=== PATIENT | male | born 1945 | race Caucasian/White ===

== ENCOUNTER 2016-07-29 11:26 | Emergency (ER) | payer OTHER ==
--- NOTE | 2016-07-29 12:14 | CPEKG ---
Heart Rate: 70 RR Interval: 857 P-R Interval: 196 QRSD Interval: 100 QT Interval: 408 QTC Interval: 441 P Ol[place]: 65 QRS [place]: 13 T Wave [place]: 51 EKG Severity - NORMAL ECG - EKG Impression: SINUS RHYTHM Electronically Signed By: Jimenez Ennis 30-Jul-2016 12:45:30
[2016-07-29] MEDS ORDERED: ASPIRIN 81 MG CHEWABLE TAB PO ONE (12:44)
[2016-07-29 12:51] LABS: ADD DIFF? NO; ADD MORPH? NO; ADD SCAN? NO; ATYPICAL LYMPHOCYTE FLAG 0 (0-99); FRAGMENT RBC FLAG 0 (0-99); HEMATOCRIT 40.2 % (40.0-51.0); HEMOGLOBIN 14.5 g/dL (13.7-17.5); LEFT SHIFT FLG 0 (0-99); LIPEMIA HEMOLYSIS FLAG 90 (0-99); MEAN CELL HEMOGLOBIN 32.7 pg (27.9-34.1); MEAN CELL HEMOGLOBIN CONCENTR. 36.1 g/dL (32.4-36.7); MEAN CELL VOLUME 90.5 fL (81.5-99.8); MEAN PLATELET VOLUME 9.9 fL (8.7-11.7); PLATELET CLUMPS FLAG 0 (0-99); PLATELET COUNT 184 10^3/uL (150-400); RED BLOOD CELL COUNT 4.44 10^6/uL (4.40-6.38); RED CELL DISTRIBUTION WIDTH 12.2 % (11.5-15.2)
[2016-07-29 12:56] LABS: ANION GAP 11 mEq/L (8-16); CALCIUM 8.9 mg/dL (8.5-10.4); CARBON DIOXIDE 26 mEq/l (22-31); CHLORIDE 105 mEq/L (97-110); CREATININE 0.8 mg/dL (0.7-1.3); GLOMERULAR FILTRATION RATE > 60; GLUCOSE 88 mg/dL (70-100); SODIUM 142 mEq/L (134-144)
[2016-07-29 13:10] LABS: TROPONIN I < 0.012 ng/mL (0-0.034)
--- NOTE | 2016-07-29 14:29 | UCPHY ---
H & P Patient Type: New Chief Complaint Nursing Narrative: awoke last tue am with Lt under arm shante down entire side - inc. pain with certain movements - denies trauma/ SOB or chest pain- describes as a dull ache feeling Time Seen by Provider: 07/29/16 12:46 HPI/ROS: CHIEF COMPLAINT: Chest History by patient HISTORY OF PRESENT ILLNESS: 71-year-old man presents complaining of left-sided chest pain which he describes as dull, constant localized to his left anterior and lateral chest which is worse with movement and change of position. He feels like it is in his chest wall. It is not associated with any shortness of breath, nausea, vomiting or diaphoresis. The pain has been constant and is not exacerbated by exertion or exercise but by change of position. He has not taken anything for the pain at home because he says is just a mild pain and he does not feel like he needs any medication for it. There is no associated leg pain or swelling. Patient states that 30 years ago he had some chest pain and had seen a core checker and had an angiogram x2 but did not ever have any stents and never followed up with a core checker. He does have a history of hypertension and high cholesterol. His father of heart failure in his 80s. REVIEW OF SYSTEMS: As in HPI, and all other systems reviewed and are negative - Personal History Current Tetanus Diphtheria and Acellular Pertussis (TDAP): Yes - Medical/Surgical History Other PMH: had Cardiac cath 30 yrs ago X 2 with neg results- in [place] - Family History Significant Family History: No pertinent family hx - Social History Smoking Status: Never smoked - Physical Exam Exam: General Appearance: Alert, pleasant, well-appearing. Eyes: Pupils equal and round no pallor or injection. ENT, Mouth: Mucous membranes moist. Respiratory: Normal, effort, There are no retractions, lungs are clear to auscultation. Cardiovascular: Regular rate and rhythm. S1-S2 no murmurs gallops rubs appreciated Chest: No bony tenderness, step-off or crepitus Gastrointestinal: Abdomen is soft and nontender, no masses, bowel sounds normal. Neurological: Awake, alert and oriented x 3, no pronator drift, normal gait, no pronator drift Skin: Warm and dry, no rashes. Musculoskeletal: Neck is supple nontender. Extremities are symmetrical, full range of motion. No edema or tenderness Psychiatric: Patient has normal affect, there is no agitation. Constitutional: Initial Vital Signs Temperature (C) 36.6 C 07/29/16 11:30 Heart Rate 75 07/29/16 11:30 Respiratory Rate 18 07/29/16 11:30 Blood Pressure 145/62 H 07/29/16 11:30 O2 Sat (%) 97 07/29/16 11:30 O2 Delivery Mode Room Air Allergies/Adverse Reactions: No Known Allergies Allergy (Unverified 07/29/16 11:29) Home Medications: Medication Instructions Recorded Lisinopril 07/29/16 SIMVASTATIN 07/29/16 Medical Decision Making - Diagnostics EKG Interpretation: Normal sinus rhythm at a rate of 70 with normal axis, normal intervals and no ST segment abnormalities. Impression: Normal EKG Imaging: Imaging Impressions Chest X-Ray 07/29/16 12:44 Impression: No evidence of acute cardiopulmonary abnormality. ED Course/Re-evaluation: This is a 71-year-old man who presents with left-sided chest pain that is worse with movement and change in position. His symptoms are atypical for cardiac chest pain. His EKG is normal. He describes 5 days of constant symptoms and get a troponin is negative and I feel this is unlikely to represent acute coronary syndrome and there is no evidence for myocardial infarction. Chest x- ray is unremarkable. No evidence of shingles. Because of patient's symptoms are unclear and he will need to follow up with his primary care physician for further evaluation. I did discuss this patient who understands and is agreeable to this plan. - Data Points Laboratory Results: Laboratory Results 07/29/16 12:30 07/29/16 12:30 07/29/16 07/29/16 12:30 12:30 WBC 4.78 10^3/uL 10^3/uL (3.80-9.50) RBC 4.44 10^6/uL 10^6/uL (4.40-6.38) Hgb 14.5 g/dL g/dL (13.7-17.5) Hct 40.2 % % (40.0-51.0) MCV 90.5 fL fL (81.5-99.8) MCH 32.7 pg pg (27.9-34.1) MCHC 36.1 g/dL g/dL (32.4-36.7) RDW 12.2 % % (11.5-15.2) Plt Count 184 10^3/uL 10^3/uL (150-400) MPV 9.9 fL fL (8.7-11.7) Neut % (Auto) 57.7 % % (39.3-74.2) Lymph % (Auto) 30.8 % % (15.0-45.0) [place] % (Auto) 10.7 % % (4.5-13.0) Eos % (Auto) 0.4 % L % (0.6-7.6) Baso % (Auto) 0.4 % % (0.3-1.7) Nucleat RBC Rel Count 0.0 % % (0.0-0.2) Absolute Neuts (auto) 2.76 10^3/uL 10^3/uL (1.70-6.50) Absolute Lymphs (auto) 1.47 10^3/uL 10^3/uL (1.00-3.00) Absolute Monos (auto) 0.51 10^3/uL 10^3/uL (0.30-0.80) Absolute Eos (auto) 0.02 10^3/uL L 10^3/uL (0.03-0.40) Absolute Basos (auto) 0.02 10^3/uL 10^3/uL (0.02-0.10) Absolute Nucleated RBC 0.00 10^3/uL 10^3/uL (0-0.01) Immature Gran % 0.0 % % (0.0-1.1) Immature Gran # 0.00 10^3/uL 10^3/uL (0.00-0.10) Sodium 142 mEq/L mEq/L (134-144) Potassium 4.0 mEq/L mEq/L (3.5-5.2) Chloride 105 mEq/L mEq/L (97-110) Carbon Dioxide 26 mEq/l mEq/l (22-31) Anion Gap 11 mEq/L mEq/L (8-16) BUN 12 mg/dL mg/dL (7-23) Creatinine 0.8 mg/dL mg/dL (0.7-1.3) Estimated GFR > 60 Glucose 88 mg/dL mg/dL (70-100) Calcium 8.9 mg/dL mg/dL (8.5-10.4) Troponin I < 0.012 ng/mL ng/mL (0-0.034) Medications Given: Discontinued Medications Aspirin (Aspirin) 324 mg PO EDNOW ONE Stop: 07/29/16 12:45 Last Admin: 07/29/16 13:02 Dose: 324 mg Departure - Departure Disposition: Home, Routine, Self-Care Clinical Impression: Acute chest wall pain Condition: Good Instructions: Chest Wall Pain (ED) Additional Instructions: You were seen by Dr. Teodora Monahan today. Return for any worsening or new concerns. Please follow up with their regular doctor within the next week to discuss the need for any further evaluation or cardiac testing. Referrals: Arielle Dove MD [Primary Care Provider] - As per Instructions - PQRS PQRS Measurement: NA
[2016-07-29 14:33] VITALS: BP 128/70; PULSE 72; RESP 16; TEMP 98.2; O2SAT 95
== END 2016-07-29 14:38 | disposition home or self-care (01) ==
LOC: CED 11:26
DX: R07.89 Other chest pain (principal); I10 Essential (primary) hypertension; E78.5 Hyperlipidemia, unspecified; Z82.49 Family history of ischemic heart disease and other diseases of the circulatory system
CPT/HCPCS: 71020; 93005; G0463; 80048-PO; 84484-PO; 85025-PO; 93010-PO; 99205-PO

== ENCOUNTER → 2016-11-18 | Outpatient (CLI) | payer OTHER | LOC: CIMAGING 10:39 | PROVIDERS: ATTEND Internal Medicine | DX: M54.10 Radiculopathy, site unspecified (principal); M54.9 Dorsalgia, unspecified; M51.36 Other intervertebral disc degeneration, lumbar region | CPT/HCPCS: 72100-PO ==

== ENCOUNTER → 2016-12-02 | Outpatient (CLI) | payer OTHER | LOC: FIMAGING 13:32 | PROVIDERS: ATTEND Internal Medicine | DX: M51.36 Other intervertebral disc degeneration, lumbar region (principal); M47.896 Other spondylosis, lumbar region; M48.06 Spinal stenosis, lumbar region; M46.96 Unspecified inflammatory spondylopathy, lumbar region ==

== ENCOUNTER 2017-01-21 13:06 | Emergency (ER) | payer OTHER ==
[2017-01-21 13:26] VITALS: TEMP 98.6
--- NOTE | 2017-01-21 13:41 | EDPHY ---
H & P Stated Complaint: left calf pain and swelling since friday, denies injury Time Seen by Provider: 01/21/17 13:21 HPI/ROS: CHIEF COMPLAINT: Right leg swelling HISTORY OF PRESENT ILLNESS: This is a 71-year-old male with 3 days of right lower leg swelling. No trauma. He has no history of venous thromboembolism. He does not have chest pain or shortness of breath. He has been wondering if this swelling could be related to back and leg pain that he has been experiencing over the last few months. He has a history of lumbar disc disease and is status post L4-5 diskectomy in 2003. For the past couple of months he has had some pain and numbness, primarily involving his low back and right leg. He saw Dr. Bardales on January 16 and, at that visit, it was decided to hold off on surgery. However, 3 nights ago he developed left leg pain. He has had persistent mild cramping in his left leg and states that his pain is now very mild. However, 3 days ago his noticed that his left leg was swollen. The swelling has persisted. He took Advil and muscle relaxant over the weekend. REVIEW OF SYSTEMS: A ten point review of systems was performed and is negative with the exception of the items mentioned in the HPI. Past medical history: 1. Hypertension 2. Hyperlipidemia 3. Benign prostatic hypertrophy Past surgical history: 1. L4-5 diskectomy 2. Inguinal hernia repair Family history: No venous thromboembolism Social history: He lives with his . He is retired electrical system specialist. He does not use tobacco products. He drinks alcohol socially. He is originally from [place]. General Appearance: Alert. Vital signs reviewed. Blood pressure 157/87 Eyes: Pupils equal and round, no conjunctival injection, no discharge. Anicteric. Respiratory: Lungs are clear to auscultation; no wheezes, rales, or rhonchi. Cardiovascular: Regular rate and rhythm; no murmur, rub, or gallop. Gastrointestinal: Abdomen is soft and nontender, no masses or organomegaly, bowel sounds normal. Skin: Warm and dry, no rashes on exposed skin, normal color. Extremities: Swelling of the left calf with some tenderness to palpation. Pulses: 2+ dorsalis pedis pulses bilaterally. Neurological: Alert and oriented. Moving all four extremities easily and equally. Strength is 5/5 in both lower extremities with testing of all major motor groups. Sensation is intact to light touch in both lower extremities. Gait is normal. Psychiatric: Normal affect. - Medical/Surgical History Other PMH: had Cardiac cath 30 yrs ago X 2 with neg results, enlarged prostate, HTN, high cholestrol, low back pain with recent MRI - Social History Smoking Status: Never smoked Constitutional: Initial Vital Signs Temperature (C) 37.0 C 01/21/17 13:20 Heart Rate 91 01/21/17 13:20 Respiratory Rate 18 01/21/17 13:20 Blood Pressure 157/87 H 01/21/17 13:20 O2 Sat (%) 95 01/21/17 13:20 O2 Delivery Mode Room Air Allergies/Adverse Reactions: No Known Allergies Allergy (Unverified 01/21/17 13:31) Home Medications: Medication Instructions Recorded Lisinopril 07/29/16 SIMVASTATIN 07/29/16 Rivaroxaban [Xarelto 15mg (*)] 15 mg PO DAILY #41 tab 01/21/17 Tamsulosin HCl 01/21/17 Medical Decision Making - Diagnostics Imaging Results: Imaging Impressions Extremity Venous Study 01/21/17 13:41 Impression: DVT extending from the popliteal vein into the calf veins. Findings discussed with Sravani Agee 01/21/2017, at 1432 hours. ED Course/Re-evaluation: Ultrasound is positive for DVT. I discussed this with the patient. We discussed starting a blood thinner and I am prescribing Xarelto 50 mg twice daily for the next 21 days. I spoke with Dr. Noé Bernal, who is electronic repair troubleshooter for Dr. Dove, the patient's primary care provider. He is in agreement with this treatment protocol. Dr. Dove will see this patient in his office next week. Differential Diagnosis: Considered a differential diagnosis that includes but is not limited to deep venous thrombosis, superficial venous thrombosis, lymphedema, peripheral edema secondary to heart failure, and infection. Departure - Departure Disposition: Home, Routine, Self-Care Clinical Impression: Deep venous thrombosis Qualifiers: DVT location: lower extremity Affected thrombotic vein of extremity: popliteal Chronicity: acute Laterality: left Qualified Code(s): I82.432 - Acute embolism and thrombosis of left popliteal vein Condition: Good Instructions: Deep Venous Thrombosis (ED) Additional Instructions: You have a deep venous thrombosis in your left leg. I am starting a blood thinning medication, Xarelto. Please read the package insert with this medication. It does have side effects as we discussed. You should take 15 mg twice daily for the next [address] Dove will provide your next prescription. He would like to see you in his office next week. Please call his office for an appointment. If you develop chest pain or shortness of breath you should be re-evaluated immediately. Referrals: Arielle Dove MD [Primary Care Provider] - As per Instructions Prescriptions: Rivaroxaban [Xarelto 15mg (*)] 15 mg PO DAILY #41 tab
[2017-01-21] MEDS ORDERED: RIVAROXABAN 15 MG TAB PO ONE (14:44)
[2017-01-21 15:30] VITALS: BP 156/84; PULSE 79; RESP 16; O2SAT 97
== END 2017-01-21 15:20 | disposition home or self-care (01) ==
LOC: CED 13:06
DX: I82.432 Acute embolism and thrombosis of left popliteal vein (principal); I10 Essential (primary) hypertension
CPT/HCPCS: 93971-PO